=== PATIENT | female | born 1975 | race Caucasian/White ===

== ENCOUNTER → 2024-11-19 | Outpatient (CLI) | payer OTHER, SELFPAY ==
--- NOTE | 2024-11-19 18:35 | CT_ITS ---
PROCEDURE: SINUS/FACIAL BONE 11/19/2024 REASON FOR EXAM: ATYPICAL FACIAL PAIN TECHNIQUE: Procedure Code: CTSI Modality: CT Procedure: SINUS/FACIAL BONE Coronal and Sagittal reconstruction series were provided. One or more dose reduction techniques were used (e.g., Automated exposure control, adjustment of the mA and/or kV according to patient size, use of iterative reconstruction technique). FINDINGS: Frontal: Clear bilaterally. The bilateral frontoethmoidal recesses are patent Ethmoid: Clear bilaterally. Sphenoid: Clear bilaterally. The bilateral sphenoethmoidal recesses are patent. Maxillary: Clear bilaterally. Ostiomeatal units: Patent bilaterally. Nasal Septum: Moderate leftward bowing with a leftward bony spur. Mastoids/Middle Ears: Clear bilaterally. CT/Sinus/Facial Bone IMPRESSION: Clear paranasal sinuses and mastoid air cells. Reading Location: [id number]
== END | disposition home or self-care (01) ==
LOC: CT 18:32
PROVIDERS: Visit Provider Otolaryngology
DX: G50.1 Atypical facial pain (principal); R09.81 Nasal congestion
CPT/HCPCS: 70486